=== PATIENT | male | born 2000 | race African-American/Black ===

== ENCOUNTER 2018-04-10 18:10 | Emergency (ER) | payer OTHER ==
[~2018-04-10] VITALS: Ht 175.3 cm; Wt 68.0 kg
[~2018-04-10 18:10] MED LIST: FLONASE 0.05%50 MCG NASAL; NOHOMEMEDICATIONS; PREDNISONE 20 M20 MG PO; VENTOLIN HFA 1818 GM INH
[2018-04-10 18:28] LABS: URINE BILIRUBIN NEGATIVE (Negative); URINE BLOOD NEGATIVE (Negative); URINE CLARITY CLEAR; URINE COLOR YELLOW; URINE GLUCOSE-RANDOM* NEGATIVE (Negative); URINE KETONES NEGATIVE (Negative); URINE LEUKOCYTES-REFLEX NEGATIVE (Negative); URINE NITRITE-REFLEX NEGATIVE (Negative); URINE PROTEIN (DIPSTICK) NEGATIVE (Negative); URINE UROBILINOGEN 0.2 E.U./dl (0.2-1.0)
[2018-04-10 18:39] VITALS: BP 126/75
[2018-04-10] MEDS ORDERED: SENOKOT-S1 TA2 PO (18:39)
[2018-04-10 18:42] LABS: HEMATOCRIT 48.1 % (42.0-52.0); HEMOGLOBIN 16.8 gm/dL (14.0-18.0); MCH 30.1 pg (26.0-34.0); PLATELET COUNT 158 thou/uL (150-400); RDW 13.1 % (10.5-14.5); WBC 5.6 thou/uL (4.0-11.0)
[2018-04-10 18:51] LABS: CALCIUM 9.5 mg/dL (8.5-10.1); CREATININE 0.9 mg/dL (0.7-1.3); POTASSIUM 3.5 mmol/L (3.5-5.1)
[2018-04-10] MEDS ORDERED: COLACE100 MG PO (18:56)
[2018-04-10] MEDS ORDERED: AUGMENTIN 875-1 EACH PO (18:56)
[2018-04-10] MEDS ORDERED: NAPROSYN500 MG PO (18:56)
[2018-04-10 18:57] LABS: ALBUMIN 4.2 g/dL (3.4-5.0); TOTAL BILIRUBIN 0.8 mg/dL (<0.1-1.0); TOTAL PROTEIN 8.2 g/dL (6.4-8.2)
[2018-04-10 19:26] LABS: ABSOLUTE NEUTROPHILS 2.6 thou/uL (1.4-8.2)
[2018-04-10 19:27] LABS: ANISOCYTOSIS 1+
== END 2018-04-10 19:33 | disposition home or self-care (01) ==
LOC: ER 18:10
PROVIDERS: Emergency Medicine
DX: K61.1 Rectal abscess (principal); J45.909 Unspecified asthma, uncomplicated

== ENCOUNTER 2018-08-16 15:25 | Emergency (ER) | payer OTHER ==
[~2018-08-16] VITALS: Ht 172.7 cm; Wt 72.6 kg
[~2018-08-16 15:25] MED LIST changes: +AUGMENTIN 875-1 EACH PO; +COLACE100 MG PO; +NAPROSYN500 MG PO; +SENOKOT-S1 TA2 PO
[2018-08-16] MEDS ORDERED: TESSALON PERLE100 MG PO (16:22)
[2018-08-16] MEDS ORDERED: SUDOGEST30 MG PO (16:22)
[2018-08-16] MEDS ORDERED: FLONASE 0.05%50 MCG NASAL (16:22)
[2018-08-16] MEDS ORDERED: VENTOLIN HFA 1818 GM INH (16:22)
[2018-08-16 16:45] VITALS: BP 146/80
== END 2018-08-16 16:46 | disposition home or self-care (01) ==
LOC: ER 15:25
DX: R50.9 Fever, unspecified (principal); J06.9 Acute upper respiratory infection, unspecified; J45.909 Unspecified asthma, uncomplicated

== ENCOUNTER 2020-05-28 10:21 | Emergency (ER) | payer BC ==
[~2020-05-28] VITALS: Ht 170.2 cm; Wt 72.6 kg
[~2020-05-28 10:21] MED LIST changes: +SUDOGEST30 MG PO; +TESSALON PERLE100 MG PO
[2020-05-28] MEDS ORDERED: PREDNISONE 20 M20 M1 PO (12:45)
[2020-05-28] MEDS ORDERED: PROAIR HFA8.5 GM INH (12:45)
[2020-05-28] MEDS ORDERED: VANACOF DM LIQ240 ML PO (12:45)
[2020-05-28] MEDS ORDERED: TYLENOL325 M1 PO (12:45)
[2020-05-28] MEDS ORDERED: FLONASE 0.05%50 MCG NARES (12:45)
[2020-05-28 12:57] VITALS: BP 138/85
== END 2020-05-28 12:57 | disposition home or self-care (01) ==
LOC: ER 10:21
DX: J06.9 Acute upper respiratory infection, unspecified (principal); J45.909 Unspecified asthma, uncomplicated; Z79.899 Other long term (current) drug therapy; Z20.822 Contact with and (suspected) exposure to COVID-19

== ENCOUNTER 2020-06-11 19:50 | Emergency (ER) | payer BC ==
[~2020-06-11] VITALS: Ht 165.1 cm; Wt 72.6 kg
[~2020-06-11 19:50] MED LIST changes: +FLONASE 0.05%50 MCG NARES; +PREDNISONE 20 M20 M1 PO; +PROAIR HFA8.5 GM INH; +TYLENOL325 M1 PO; +VANACOF DM LIQ240 ML PO
[2020-06-11] MEDS ORDERED: PREDNISONE 10 M10 M1 PO (21:35)
[2020-06-11] MEDS ORDERED: ZYRTEC10 M2 PO (21:36)
[2020-06-11 22:10] VITALS: BP 127/82
== END 2020-06-11 22:10 | disposition home or self-care (01) ==
LOC: ER 19:50
DX: J45.901 Unspecified asthma with (acute) exacerbation (principal); R09.81 Nasal congestion; Z79.899 Other long term (current) drug therapy

== ENCOUNTER → 2020-11-08 | Emergency (ER) | payer BC ==
[~2020-11-08] MED LIST changes: +PREDNISONE 10 M10 M1 PO; +ZYRTEC10 M2 PO
== END ==
LOC: ER 22:15
DX: J02.9 Acute pharyngitis, unspecified (principal); Z53.21 Procedure and treatment not carried out due to patient leaving prior to being seen by health care provider